=== PATIENT | male | born 1960 | race Caucasian/White ===

== ENCOUNTER 2023-02-02 19:41 | Inpatient (IN) | payer BC ==
[~2023-02-02] VITALS: Ht 167.6 cm; Wt 81.6 kg
[2023-02-02 19:55] VITALS: BP 116/91
--- NOTE | 2023-02-02 20:02 | NUR ---
pt went to the lobby
--- NOTE | 2023-02-02 20:35 | NUR ---
PT TO BED 1 AMBULATORY
[2023-02-02 21:52] LABS: BASOPHILS % (AUTO) 0.7 % (0.0-2.0); EOSINOPHILS # (AUTO) 0.1 K/uL (0-0.4); EOSINOPHILS % (AUTO) 2.4 % (0.0-4.0); HEMATOCRIT 28.2 % (36-52); HEMOGLOBIN 9.4 g/dL (12.0-18.0); LYMPHOCYTES # (AUTO) 0.6 K/uL (2.0-11.5); LYMPHOCYTES % (AUTO) 12.9 % (20.5-51.1); MEAN CORPUSCULAR HEMOGLOBIN 28 pg (27-31); MEAN CORPUSCULAR HGB CONC 33 g/dL (33-37); MEAN CORPUSCULAR VOLUME 85.3 fL (80-94); MONOCYTES # (AUTO) 0.5 K/uL (0.8-1.0); MONOCYTES % (AUTO) 10.3 % (1.7-9.3); NEUTROPHILS # (AUTO) 3.6 K/uL (1.8-7.7); NEUTROPHILS % (AUTO) 73.7 % (42.2-75.2); PLATELET COUNT (AUTO) 88 K/uL (140-450); RED BLOOD CELL COUNT(AUTO) 3.31 MIL/uL (4.20-6.10); RED CELL DISTRIBUTION WIDTH 17.6 % (11.6-13.7); WHITE BLOOD COUNT (AUTO) 4.8 K/uL (4.8-10.8)
[2023-02-02 22:05] LABS: ALBUMIN 2.8 g/dL (3.4-5.0); ANION GAP 11.6 (8-16); CARBON DIOXIDE 27.1 mmol/L (21-32); CREATININE 1.2 mg/dL (0.6-1.3); POTASSIUM 3.7 mmol/L (3.5-5.1); TOTAL BILIRUBIN 1.4 mg/dL (0.0-1.0)
[2023-02-02 22:10] LABS: LIPASE 160 U/L (73-393)
--- NOTE | 2023-02-02 23:00 | NUR ---
Patient resting in bed, A/Ox4, chest rise and fall symmetrical, no s/s of distress, on monitor.
[2023-02-03 00:10] LABS: APPEARANCE,URINE CLEAR (CLEAR); BILIRUBIN,URINE NEGATIVE (NEGATIVE); BLOOD, URINE NEGATIVE (NEGATIVE); COLOR,URINE YELLOW (YELLOW); LEUKOCYTE ESTERASE ,URINE NEGATIVE (NEGATIVE); NITRITE, URINE NEGATIVE (NEGATIVE); UGLUCOSE NEGATIVE (NEGATIVE)
--- NOTE | 2023-02-03 01:21 | NUR ---
Patient resting in bed, A/Ox4, chest rise and fall symmetrical, no s/s of distress, on monitor.
--- NOTE | 2023-02-03 03:49 | NUR ---
ER physician at bedside speaking with patient.
--- NOTE | 2023-02-03 03:49 | NUR ---
Patient resting in bed, A/Ox4, chest rise and fall symmetrical, no c/o pain or s/s of distress, on monitor.
[2023-02-03] MEDS ORDERED: LISI-487 PO (05:09)
[2023-02-03] MEDS ORDERED: FURO-572 PO (05:09)
[2023-02-03] MEDS ORDERED: HYDROcodone/APAP 5/325 MG 1 TAB TAB PO ONE (05:40)
--- NOTE | 2023-02-03 05:50 | NUR ---
Patient resting in bed, A/Ox4, chest rise and fall symmetrical, no c/o pain or s/s of distress, on monitor.
[2023-02-03] MEDS ORDERED: POTASSIUM CHLORIDE 10 MEQ TABER PO PRN (06:25)
[2023-02-03] MEDS ORDERED: ONDANSETRON 4 MG/2 ML VIAL IVP PRN ×2 (06:25→07:55)
[2023-02-03] MEDS ORDERED: NACL 0.9% 1,000 ML IV SCH (06:25)
[2023-02-03] MEDS ORDERED: MAG SULF 2000 MG/WATER PREMIX 50 ML IV PRN (06:25)
[2023-02-03] MEDS ORDERED: HYDROcodone/APAP 7.5/325 MG 1 TAB PO PRN (06:25)
[2023-02-03] MEDS ORDERED: ACETAMINOPHEN 325 MG TAB PO PRN ×2 (06:25→07:55)
--- NOTE | 2023-02-03 07:12 | NUR ---
Change of shift report given to AM Shift Nurse Familia ANTHONY. AM Shift Nurse Familia RN verbalized understanding of report, no further questions.
--- NOTE | 2023-02-03 07:30 | NUR ---
ASSUMED PATIENT CARE, CONCUR WITH PREVIOUS NURSING ASSESSMENTS.
[2023-02-03] MEDS ORDERED: ZOLPIDEM 5 MG TAB PO PRN (07:55)
[2023-02-03] MEDS ORDERED: HYDROcodone/APAP 5/325 MG 1 TAB TAB PO PRN (07:55)
[2023-02-03] MEDS ORDERED: BOWEL EVACUANT DRINK 4,000 ML PDS PO SCH (08:00)
--- NOTE | 2023-02-03 08:57 | NUR ---
PATIENT HAS BEEN SCREENED AND CATEGORIZED MODERATE NUTRITION RISK. PATIENT WILL BE SEEN WITHIN 3-5 DAYS OF ADMISSION. 02/06/23-02/08/[address]
[2023-02-03] MEDS ORDERED: ENOXAPARIN 40 MG/0.4 ML SYR SUBQ SCH (09:00)
[2023-02-03] MEDS ORDERED: PANTOPRAZOLE 40 MG INJ VIAL IVP SCH (09:00)
[2023-02-03] MEDS ORDERED: lisinopriL 20 MG TAB PO SCH (09:00)
[2023-02-03] MEDS ORDERED: DOCUSATE SODIUM 100 MG GELCAP PO SCH (09:00)
--- NOTE | 2023-02-03 09:09 | NUR ---
PT WENT TO CT
[2023-02-03] MEDS: FUROSEMIDE 40 MG/4 ML VIAL IVP SCH ×2 (09:27→17:56)
[2023-02-03] MEDS: DOCUSATE SODIUM 100 MG GELCAP PO SCH (09:27)
--- NOTE | 2023-02-03 19:51 | NUR ---
Lilian stanley in ED - 02/03/23 at 1952 by AMANPB assumed care of pt, respirations even and unlabored.
--- NOTE | 2023-02-03 19:52 | NUR ---
assumed care of pt, respirations even and unlabored. pt awake and alert, bedside. awaiting admission
--- NOTE | 2023-02-03 20:23 | NUR ---
Patient will be admitted to care of Ashley. Admited to Med Surg. Will go to [id number]. Belongings list completed. Report to Sandi ANTHONY.
--- NOTE | 2023-02-03 20:27 | NUR ---
ADMITTED PT FROM ER VIA [facility] WITH CHIEF COMPLAINTS OF BILATERAL SWELLING OF LEG. PT DIAGNOSIS OF CIRRHOSIS WITH LIVER MASS, HISTORY OF HEP C, COLITIS AND HTN. PT ALLERGY OF PENICILLIN AND IS A FULL CODE. PT ABLE TO AMBULATE INDEPENDENTLY WITH STEADY GAIT. PT IS AWAKE , ALERT AND ABLE TO VERBALIZED NEEDS. IV SITE IS ON LEFT AC 18G. PT IS CURRENTLY NPO.
--- NOTE | 2023-02-03 22:00 | NUR ---
PT AMBULATES TO RESTROOM INDEPENDENTLY. NO VERBALIZATION OF PAIN OR DISCOMFORT.
[2023-02-04 04:00] VITALS: BP 123/77
--- NOTE | 2023-02-04 05:00 | NUR ---
PT IS ON STABLE CONDITION, VERBALIZED OF HAVING MILD PAIN ON ABDOMEN BUT TOLERABLE.
[2023-02-04 05:28] LABS: EOSINOPHILS # (AUTO) 0.1 K/uL (0-0.4); EOSINOPHILS % (AUTO) 3.2 % (0.0-4.0); HEMATOCRIT 27.6 % (36-52); HEMOGLOBIN 9.2 g/dL (12.0-18.0); LYMPHOCYTES # (AUTO) 0.7 K/uL (2.0-11.5); LYMPHOCYTES % (AUTO) 18.8 % (20.5-51.1); MEAN CORPUSCULAR HEMOGLOBIN 29 pg (27-31); MEAN CORPUSCULAR HGB CONC 33 g/dL (33-37); MEAN CORPUSCULAR VOLUME 85.7 fL (80-94); MONOCYTES # (AUTO) 0.5 K/uL (0.8-1.0); MONOCYTES % (AUTO) 13.5 % (1.7-9.3); NEUTROPHILS # (AUTO) 2.3 K/uL (1.8-7.7); NEUTROPHILS % (AUTO) 63.5 % (42.2-75.2); PLATELET COUNT (AUTO) 75 K/uL (140-450); RED BLOOD CELL COUNT(AUTO) 3.23 MIL/uL (4.20-6.10); RED CELL DISTRIBUTION WIDTH 17.7 % (11.6-13.7); WHITE BLOOD COUNT (AUTO) 3.6 K/uL (4.8-10.8)
[2023-02-04 06:25] LABS: ALBUMIN 2.5 g/dL (3.4-5.0); ANION GAP 13.3 (8-16); CARBON DIOXIDE 26.2 mmol/L (21-32); POTASSIUM 3.5 mmol/L (3.5-5.1); TOTAL BILIRUBIN 1.7 mg/dL (0.0-1.0)
[2023-02-04 08:00] VITALS: BP 132/83
[2023-02-04] MEDS: FUROSEMIDE 40 MG/4 ML VIAL IVP SCH ×2 (08:32→16:40)
[2023-02-04] MEDS: DOCUSATE SODIUM 100 MG GELCAP PO SCH (08:32)
--- NOTE | 2023-02-04 08:46 | NUR ---
DC PLANN[age] YRS OLD MALE PATIENT WAS ADMITTED FROM HOME WITH A DX OF METASTATIC CANCER. PATIENT HAS A HX OF HEP C AND HTN. CT ABD AND US ABD SHOWED CIRRHOTIC LIVER CONTAINING MULTIPLE MASS LESIONS. CT CHEST SHOWED MULTIPLE BILATERAL PULMONARY NODULES WITH PRIMARY CONSIDERATION TO METASTATIC DISEASE. ADMINISTERED IV LASIX AND CONTINUED HOME MEDS. CONSULTED WITH GI. DC PLAN TO GO HOME AND F/U WITH ONCOLOGY OUT PATIENT. CM TO FOLLOW Addendum: 02/05/23 at 1135 by DESMOND ESPINAL CM RECEIVED ORDER TO SUBMIT A REQUEST FOR AUTH TO SE DR REBECCA ADAMS NEW DX CANCER. FAXED ORDER TO PATIENTS INSURANCE PROSPECT
--- NOTE | 2023-02-04 09:04 | NUR ---
FNS CONSULT HAS BEEN RECEIVED ON 02/04/23 FOR NOT EATING/POOR APPETITE FOR OVER 1 WEEK. PATIENT HAS BEEN RE-SCREENED HIGH RISK AND WILL BE SEEN WITHIN 1-2 DAYS OF RECEIVING THE FNS CONSULT. MICHAEL JENN[address] RD
[2023-02-04] MEDS ORDERED: MIDAZOLAM 2 MG/2 ML VIAL ONE ×2 (13:48)
[2023-02-04] MEDS ORDERED: fentaNYL citrate 0.05 MG/ML VIAL ONE (13:48)
[2023-02-04] MEDS ORDERED: diphenhydrAMINE 50 MG/ML VIAL ONE (13:48)
--- NOTE | 2023-02-04 14:19 | NUR ---
02/04/23 RD INITIAL ASSESSMENT COMPLETED PLEASE REFER TO NUTRITION ASSESSMENT UNDER CARE ACTIVITY FOR ESTIMATED NUTRITIONAL NEEDS. 1. CONTINUE CLEAR LIQUID DIET TOLERATED AND WHEN MEDICALLY APPROPRIATE ADVANCE TO FULL LIQUID DIET AND THEN TO CARDIAC DIET. 2. RD RECOMMENDS ENSURE CLEAR BID TO HELP WITH CALORIE AND NUTRIENT INTAKE. THIS WILL PROVIDE 480 CALORIES AND 16 GRAMS OF PROTEIN. 3. RD TO FOLLOW-UP 3-5 DAYS, MODERATE RISK MICHAEL JENNINGS RD
[2023-02-04] MEDS ORDERED: POTASSIUM CHLORIDE 20% 40 MEQ/15 ML UDC GT SCH (15:16)
[2023-02-04] MEDS ORDERED: SPIRONOLACTONE 50 MG TAB PO SCH (15:17)
--- NOTE | 2023-02-04 15:37 | NUR ---
RECEIVE PATIENT BACK FROM OR AFTER COMPLETE EGD & COLONOSCOPY. 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 PATIENT CURRENT ADVANCE DIET TO CLEAR LIQUID. WILL CONTINUE TO MONITOR Addendum: 02/04/23 at 2000 by Judy Lock RN ENDORSE PATIENT IN STABLE CONDITION AFTER PROCEDURE DONE AND PATIENT SHOWER THIS MORNING.
[2023-02-04 16:00] VITALS: BP 124/83
[2023-02-04] MEDS ORDERED: fentaNYL citrate 0.05 MG/ML VIAL IVP ONE (16:00)
[2023-02-04] MEDS ORDERED: MIDAZOLAM 2 MG/2 ML VIAL IVP ONE (16:00)
--- NOTE | 2023-02-04 19:25 | NUR ---
RECEIVED PT ENDORSEMENT FROM DAY SHIFT NURSE FOR CONTINUITY OF CARE. PT IS ON STABLE CONDITION, AWAKE AND ALERT. PT AMBULATES TO REST ROOM INDEPENDENTLY. FAMILY ARE ON BEDSIDE.
[2023-02-04 20:00] VITALS: BP 125/72
--- NOTE | 2023-02-04 22:00 | NUR ---
PT SLEEPS WELL, NO FACIAL GRIMACING. NO SOB OR DISTRESS.
--- NOTE | 2023-02-05 02:00 | NUR ---
PT ASLEEP WITH NO FACIAL GRIMACING. NO SOB OR DISTRESS.
[2023-02-05 04:00] VITALS: BP 134/78
--- NOTE | 2023-02-05 04:30 | NUR ---
PT WAS AWAKE WHEN VITAL SIGNS CHECK, PT DENIES OF PAIN AT THIS TIME.
[2023-02-05 05:27] LABS: BASOPHILS % (AUTO) 0.5 % (0.0-2.0); EOSINOPHILS # (AUTO) 0.1 K/uL (0-0.4); EOSINOPHILS % (AUTO) 2.8 % (0.0-4.0); HEMATOCRIT 28.6 % (36-52); HEMOGLOBIN 9.6 g/dL (12.0-18.0); LYMPHOCYTES # (AUTO) 0.6 K/uL (2.0-11.5); LYMPHOCYTES % (AUTO) 16.2 % (20.5-51.1); MEAN CORPUSCULAR HEMOGLOBIN 29 pg (27-31); MEAN CORPUSCULAR HGB CONC 34 g/dL (33-37); MEAN CORPUSCULAR VOLUME 85.6 fL (80-94); MONOCYTES # (AUTO) 0.4 K/uL (0.8-1.0); MONOCYTES % (AUTO) 11.9 % (1.7-9.3); NEUTROPHILS # (AUTO) 2.4 K/uL (1.8-7.7); NEUTROPHILS % (AUTO) 68.6 % (42.2-75.2); PLATELET COUNT (AUTO) 82 K/uL (140-450); RED BLOOD CELL COUNT(AUTO) 3.34 MIL/uL (4.20-6.10); RED CELL DISTRIBUTION WIDTH 17.6 % (11.6-13.7); WHITE BLOOD COUNT (AUTO) 3.5 K/uL (4.8-10.8)
[2023-02-05 06:17] LABS: ALBUMIN 2.6 g/dL (3.4-5.0); ANION GAP 13.9 (8-16); CARBON DIOXIDE 26.5 mmol/L (21-32); MAGNESIUM 1.9 mg/dL (1.8-2.4); POTASSIUM 3.4 mmol/L (3.5-5.1); TOTAL BILIRUBIN 1.5 mg/dL (0.0-1.0)
[2023-02-05] MEDS ORDERED: SPIR50TA PO (08:49)
[2023-02-05] MEDS ORDERED: LACT10SO11 PO (08:49)
[2023-02-05] MEDS ORDERED: ACET-5629 PO (08:49)
[2023-02-05] MEDS ORDERED: LACTULOSE 20 GM/30 ML UDC PO SCH (09:00)
[2023-02-05] MEDS ORDERED: SPIRONOLACTONE 50 MG TAB PO SCH (09:00)
[2023-02-05] MEDS: FUROSEMIDE 40 MG/4 ML VIAL IVP SCH (09:35)
--- NOTE | 2023-02-05 13:30 | NUR ---
patient discharged home accompanied by . stable upon discharged.
== END 2023-02-05 13:25 | disposition home or self-care (01) | DRG 436 ==
LOC: MED 19:41 → MTU 02-03 06:32 → OBSVTOIN 02-03 06:32 → INTOOBSV 02-03 06:32 → MTU 02-03 07:58
PROVIDERS: ADMIT Internal Medicine; ATTEND Internal Medicine
PROC: 0DJ08ZZ Inspection of Upper Intestinal Tract, Via Natural or Artificial Opening Endoscopic (ICD-10-PCS; principal; 2023-02-04 13:00)
PROC: 0DBN8ZZ Excision of Sigmoid Colon, Via Natural or Artificial Opening Endoscopic (ICD-10-PCS; 2023-02-04 13:00)
DX: C78.7 Secondary malignant neoplasm of liver and intrahepatic bile duct (principal); C78.01 Secondary malignant neoplasm of right lung; I85.10 Secondary esophageal varices without bleeding; K76.6 Portal hypertension; B19.20 Unspecified viral hepatitis C without hepatic coma; D64.9 Anemia, unspecified; K74.60 Unspecified cirrhosis of liver; K80.20 Calculus of gallbladder without cholecystitis without obstruction; I10 Essential (primary) hypertension; Z20.822 Contact with and (suspected) exposure to COVID-19
CPT/HCPCS: 36415; 71250; 76705; 80053; 81003; 82105; 82378; 83690; 83735; 83880; 84484; 85025; 86301; 87081; 99285; J1200; J1940; J2250; J3010; Q0092

== ENCOUNTER 2023-02-24 10:58 | Inpatient (IN) | payer BC ==
[~2023-02-24] VITALS: Ht 167.6 cm; Wt 82.6 kg
[2023-02-24] VITALS (14 sets, daily range): BP systolic 67–160; BP diastolic 46–106; PULSE 31–106; RESP 22–31; TEMP 90–96.8; O2SAT 98–100
[~2023-02-24 10:58] MED LIST: ACET-5629 PO; FURO-572 PO; LACT10SO11 PO; LISI-487 PO; SPIR50TA PO
--- NOTE | 2023-02-24 11:14 | NUR ---
BIBA FOR AMS, HYPOGLYCEMIA. PATIENT WITH HX OF LIVER CA WITH IFEOMA TO LUNGS AND BONES.
--- NOTE | 2023-02-24 11:15 | NUR ---
abg ordered for pt from er dr. ashraf is in respiratory distress came in on 100% nonrebreather mask.
[2023-02-24] MEDS ORDERED: INTUBATION KIT MC ONE (11:24)
--- NOTE | 2023-02-24 11:26 | NUR ---
RSI MEDS GIVEN FOLLOWS 1126 ETOMIDATE 20 MG IVP 1127 ROCURONIUM 100 MG IVP INTUBATED WITH 8.0 ETT AT 22 LIP.
[2023-02-24 11:27] LABS: HEMATOCRIT 25.2 % (36-52); HEMOGLOBIN 7.6 g/dL (12.0-18.0); MEAN CORPUSCULAR HEMOGLOBIN 29 pg (27-31); MEAN CORPUSCULAR HGB CONC 30 g/dL (33-37); MEAN CORPUSCULAR VOLUME 96.9 fL (80-94); PLATELET COUNT (AUTO) 145 K/uL (140-450); RED CELL DISTRIBUTION WIDTH 22.7 % (11.6-13.7); WHITE BLOOD COUNT (AUTO) 17.5 K/uL (4.8-10.8)
--- NOTE | 2023-02-24 11:40 | NUR ---
@1127 pt became unresponsive and pt was intubated with 8.0 secured at 22@ lips, pt was preoxygenated with 100% o2 via ambu bag. positive coloremetry, bilateral breath sounds heard, and chest xray taken. pt was placed on vent settings AC/VC 450 RR16 +5 50%. pt tolerating settings well. will contiue to monitor.
[2023-02-24 11:45] LABS: CREATININE 3.8 mg/dL (0.6-1.3); TOTAL BILIRUBIN 5.9 mg/dL (0.0-1.0)
[2023-02-24 11:47] LABS: LYMPHOCYTES % (MANUAL) 6 % (20-46); MONOCYTES % (MANUAL) 7 % (5-12)
[2023-02-24 11:51] LABS: CARBON DIOXIDE 8.2 mmol/L (21-32); POTASSIUM 7.2 mmol/L (3.5-5.1)
[2023-02-24] MEDS ORDERED: ETOMIDATE 20 MG/10 ML VIAL IVP ONE (12:00)
[2023-02-24] MEDS ORDERED: ROCURONIUM 50 MG/5 ML VIAL IV ONE (12:00)
[2023-02-24] MEDS ORDERED: DEXTROSE 50% 50 ML SYR IVP ONE ×2 (12:10→23:25)
[2023-02-24] MEDS ORDERED: ALBUTEROL 0.083% 2.5 MG/3 ML NEBU INH ONE (12:10)
[2023-02-24] MEDS ORDERED: INSULIN REGULAR, HUMAN 100 UNIT/ML VIAL SUBQ ONE (12:10)
[2023-02-24] MEDS ORDERED: CALCIUM GLUCONATE 10% 1,000 MG in NACL 0.9% 50 ML IV ONE ×4 (12:10)
[2023-02-24] MEDS ORDERED: VANCOMYCIN 1GM/DEXT 5% PREMIX 200 ML IV ONE (12:15)
[2023-02-24] MEDS ORDERED: PIPERACILLIN/TAZOBACTAM 3.375 GM in DEXTROSE 5% 50 ML IV ONE (12:15)
[2023-02-24] MEDS ORDERED: VANCOMYCIN PER PHARMACY MC PRN ×2 (12:15→13:15)
[2023-02-24] MEDS ORDERED: CALCIUM GLUC 1 GM/50 mL NS BAG 100 ML IV ONE (12:23)
[2023-02-24] MEDS ORDERED: PIPERACILLIN/TAZOBACTAM 3.375 GM VIAL IV ONE (12:23)
[2023-02-24 12:50] LABS: PROTHROMBIN TIME 30.7 secs (10.8-13.4)
[2023-02-24] MEDS ORDERED: VASOPRESSIN 20 UNITS/ML VIAL ONE ×2 (12:59→23:43)
--- NOTE | 2023-02-24 13:10 | NUR ---
er requested to withdrawl ett 1cm. pt ett is now 21 @lip. will continue to monitor.
[2023-02-24] MEDS ORDERED: DEXT 5% /NACL 0.9% 1,000 ML IV SCH (13:15)
[2023-02-24] MEDS ORDERED: MORPHINE SULFATE 4 MG/ML SYR IVP PRN (13:15)
[2023-02-24] MEDS ORDERED: ONDANSETRON 4 MG/2 ML VIAL IVP PRN (13:15)
[2023-02-24] MEDS ORDERED: ACETAMINOPHEN 325 MG TAB PO PRN (13:15)
[2023-02-24] MEDS ORDERED: PROPOFOL 1000 MG/100 ML PREMIX 100 ML IV PRN (13:20)
[2023-02-24] MEDS ORDERED: NOREPINEPHRINE 4 MG in DEXTROSE 5% 250 ML IV PRN (13:20)
[2023-02-24] MEDS ORDERED: VANCOMYCIN 1,000 MG VIAL ONE (13:28)
[2023-02-24] MEDS ORDERED: PANTOPRAZOLE 40 MG INJ VIAL IVP SCH (13:40)
[2023-02-24] MEDS: SODIUM BICARBONATE 8.4% 150 MEQ in DEXTROSE 5% 1,000 ML IV SCH ×2 (13:45→23:05)
[2023-02-24] MEDS ORDERED: NOREPINEPHRINE 4 MG/4 ML VIAL IV ONE ×2 (13:46→16:13)
[2023-02-24] MEDS: VASOPRESSIN 20 UNITS in NACL 0.9% 250 ML IV SCH ×2 (14:09→23:47)
[2023-02-24] MEDS ORDERED: PHENYLEPHRINE 10 MG in NACL 0.9% 250 ML IV PRN (14:30)
[2023-02-24] MEDS ORDERED: NACL 0.9% 2,000 ML IV SCH (14:30)
[2023-02-24] MEDS ORDERED: OCTREOTIDE ACETATE 1.25 MG in NACL 0.9% 250 ML IV SCH (14:30)
[2023-02-24] MEDS ORDERED: SODIUM BICARBONATE 8.4% PFS 50 MEQ/50 ML SYR IVP ONE ×5 (14:32→22:20)
[2023-02-24] MEDS ORDERED: LIDOCAINE MPF 1% 5 ML ONE (14:34)
--- NOTE | 2023-02-24 14:59 | NUR ---
INTESIVIST AT BS
--- NOTE | 2023-02-24 15:00 | NUR ---
BLOOODS PRESSURE IMPROVING
[2023-02-24] MEDS ORDERED: ALBUMIN HUMAN 25% 100 ML IV SCH (15:12)
[2023-02-24] MEDS: PANTOPRAZOLE 80 MG in NACL 0.9% 100 ML IVP SCH (15:58)
--- NOTE | 2023-02-24 16:25 | NUR ---
Received patient from ER nurse Karlee. Patient immediately put on ICU monitor due to current state. Patient has 18G to left AC, 20G right AC, 18G to hand. Left groin triple lumen central line. Patient is on Protonix Drip, Sandostatin, Vasopressin, Sozyn, Levophed, D5W, Albumin, 1 unit of PRBC. Patient on ETT to vent A/C VC FIO2 40% VT 450, RR 24 Peep 5 per ER nurse ETT tube originally placement was 22 inches now it's 21 inches. Abdomen distended. Lopez catheter to gravity with yellow urine.
--- NOTE | 2023-02-24 16:38 | NUR ---
Patient will be admitted to care of HARRIET. Admited to ICU. Will go to room 9. Belongings list completed. Report to
--- NOTE | 2023-02-24 16:45 | NUR ---
Contacted ER Nurse regarding typing cross paper. Per ER nurse due to emergency no typing cross match paper was given when he picked up RBC. Will continue to follow plan of care.
--- NOTE | 2023-02-24 16:45 | NUR ---
Received RBC from ER Nurse. Started patient on RBC unit [id number]. VSS stable. No SOB or acute distress noted.
--- NOTE | 2023-02-24 17:00 | NUR ---
Patient had no adverse reactions to RBC transfusion. VSS. No SOB or acute distress. Will continue to follow plan of care.
[2023-02-24 17:36] LABS: ANION GAP 32.7 (8-16); CARBON DIOXIDE 11.9 mmol/L (21-32); CREATININE 3.6 mg/dL (0.6-1.3)
[2023-02-24 17:39] LABS: POTASSIUM 6.6 mmol/L (3.5-5.1)
--- NOTE | 2023-02-24 18:00 | NUR ---
Reached out to Dr. Becker regarding patients trending down Troponin level of 620. No new orders received.
[2023-02-24] MEDS: NOREPINEPHRINE 16 MG in DEXTROSE 5% 250 ML IV PRN (19:01)
--- NOTE | 2023-02-24 19:25 | NUR ---
RECEIVED PT ON VENTILATOR PLUGGED INTO RED OUTLET WITH SETTINGS AC 24, Vt 450, PEEP +5, FiO2 40%. AMBU BAG AT BEDSIDE AND SUCTION IS SETUP. BREATH SOUNDS ARE CLEAR, SXN SMALL AMOUNT OF YELLOW/BLOOD TINGED SECRETION. OBTAINED SPUTUM SAMPLE FOR ANALYSISI PER DOCTOR'S ORDER. PATIENT IS NOT AWAKE AND TOLERATING VENT WELL, WILL CONTINUE TO MONITOR PT.
[2023-02-24] MEDS ORDERED: PHENYLEPHRINE 10 MG/ML VIAL ONE (19:35)
--- NOTE | 2023-02-24 19:50 | NUR ---
RECEIVED REPORT FROM [facility] NURSE, RAJ MURPHY FOR CONTINUITY OF CARE. ALL CARES ASSUMED. RECEIVED PT LYING IN BED, ON SEMI-BE'S POSITION WITH SIDE RAILS RAISED UP. PT IS LETHARGIC BUT ABLE TO RESPOND BY MOVING HEAD AND EXTREMETIES UPON ASSESSMENT, NO EYE OPENING. ON SINUS RHYTHM ON JOURNEYMAN MECHANIC. WITH NGT ATTACHED TO LOW WALL INTERMITTENT SUCTION WITH REDDISH TO BROWNISH OUTPUT OBSERVED. WITH ETT ATTACHED TO VENT ON A/C VC MODE FIO2-40% TV-450ML RATE-24CPM PEEP-5- SPO2 OF 100% WITH EQUAL CHEST RISE OBSERVED. WITH IV ACCESS OVER RIGHT AND LEFT ARM - PATENT AND INTACT- RIGHT IV ACCESS TO SALINE LOCK; LEFT ANTECUBITAL IV ACCESS FLOWING TO LEVOPHED AT 30 MCG/MIN AND SOCIUM BICARBONATE AT 150ML/HR. WITH LEFT FEMORAL CENTRAL LINE-PATENT AND INTACT- FLOWING TO VASOPRESSIN AT 0.03 IU/MIN, PANTOPRAZOLE AT 8MG/HR. WITH FBC ATTACHED TO UROBAG DRAINING TO GRAVITY- YELLOW COLORED URINE NOTED. ON SYDNI ADKINS FOR HYPOTHERMIA. SAFETY PRECAUTION IN PLACE. WILL MKONITOR PT CLOSELY. Addendum: 02/24/23 at 2325 by JULIO WHITNEY RN LEVOPHED DRIP FLOWING TO LEFT FEMORAL ACCESS. PANTOPRAZOLE DRIP FLOWING TO LEFT AC IV ACCESS.
[2023-02-24] MEDS: OCTREOTIDE ACETATE 1.25 MG in NACL 0.9% 250 ML IV SCH (19:54)
[2023-02-24 20:15] LABS: BASOPHILS # (AUTO) 0.1 K/uL (0.00-0.22); BASOPHILS % (AUTO) 0.4 % (0.0-2.0); EOSINOPHILS # (AUTO) 0.1 K/uL (0-0.4); EOSINOPHILS % (AUTO) 0.3 % (0.0-4.0); HEMATOCRIT 24.3 % (36-52); HEMOGLOBIN 7.5 g/dL (12.0-18.0); LYMPHOCYTES # (AUTO) 1.1 K/uL (2.0-11.5); LYMPHOCYTES % (AUTO) 5.3 % (20.5-51.1); MEAN CORPUSCULAR HEMOGLOBIN 29 pg (27-31); MEAN CORPUSCULAR HGB CONC 31 g/dL (33-37); MEAN CORPUSCULAR VOLUME 94.4 fL (80-94); MONOCYTES # (AUTO) 1.4 K/uL (0.8-1.0); MONOCYTES % (AUTO) 6.8 % (1.7-9.3); NEUTROPHILS # (AUTO) 18.5 K/uL (1.8-7.7); NEUTROPHILS % (AUTO) 87.2 % (42.2-75.2); PLATELET COUNT (AUTO) 76 K/uL (140-450); RED BLOOD CELL COUNT(AUTO) 2.57 MIL/uL (4.20-6.10); RED CELL DISTRIBUTION WIDTH 20.8 % (11.6-13.7); WHITE BLOOD COUNT (AUTO) 21.2 K/uL (4.8-10.8)
[2023-02-24] MEDS: metroNIDAZOLE 500 MG/NS PREMIX 100 ML IV SCH (20:17)
--- NOTE | 2023-02-24 20:57 | NUR ---
FAMILY MEMBERS CAME TO VISIT. STAYED AT BEDSIDE.
--- NOTE | 2023-02-24 21:00 | NUR ---
DR. DAI CALLED, ASKED PT. CURRENT CONDITION AND ASKED IF PT. ON THE DRIP. REPORTED THAT PT. ON LEVOPHED DRIP, PROTONIX DRIP, VASOPRESSIN DRIP, SODIUM BICARB DRIP, AND JUST STARTED NEOSYNEPHRINE DRIP, SANDOSTATIN DRIP. REPORTED TOO THAT 1 UNIT OF PRBC GIVEN, JUST FINISHED. HE ASKED IF CT CHEST OF HEAD WITHOUT CONTRAST HAS BEEN DONE. THE ORDER PLACED AT 1445 IN ER. WHILE ON THE PHONE WITH DR. DAI, I CALLED THE RADIOLOGY AND ASKED WHY CT SCAN OF THE HEAD NOT DONE AND ACCORDING TO RADIOLOGY BEC. DURING THAT TIME, ER STATED PT. UNSTABLE TO GO TO CT DUE TO LOW BP. RELATED TO DR. DAI WHAT THE RADIOLOGY DEPT. STATED AND HE SAID, PT. WILL ALWAYS BE UNSTABLE, THAT'S WHY CT NEEDS TO BE DONE. HE ORDERED TO DO STAT CT SCAN OF THE HEAD WITHOUT CONTRAST. ALSO, ORDERED STAT 3 FFP, 2 UNITS RBC TRANSFUSION, ABG, 2 AMPS SODIUM BICARB. I ALSO REPORTED PT. K LEVEL 6.6 AND HE ORDERED TO NOTIFY TAPE CUTTER WITH THE K LEVEL. WILL ORDER AND WILL CARRY OUT.
--- NOTE | 2023-02-24 21:32 | NUR ---
TRANSPORTED PT TO CT WITHOUT INCIDENT.
--- NOTE | 2023-02-24 21:40 | NUR ---
PT TO CT FOR CT OF THE HEAD W/O CONTRAST, SWITCHMAN SUPERVISOR WITH PT.
--- NOTE | 2023-02-24 22:02 | NUR ---
PT ARRIVED BACK FROM CT SCAN. PROCEDURE DONE.
--- NOTE | 2023-02-24 22:15 | NUR ---
OBTAINED ABG PER ORDER. RESULTS GIVEN TO RN WHO COMMUNICATED RESULTS TO DOCTOR. ABG RESULTS WEREpH 7.102, pCO2 31.0, pO2 111.6, HCO3- 9.5, BE -18.5.
--- NOTE | 2023-02-24 22:15 | NUR ---
ABG TAKEN BY RT.
--- NOTE | 2023-02-24 22:26 | NUR ---
I CALLED DARELL BALDWIN AND REPORTED K LEVEL 6.6. HE ORDERED TO GIVE CALCIUM GLUCONATE 1 GM, 1 AMP D50 AND 8 UNITS REGULAR INSULIN IVP. WILL ORDER AND WILL CARRY OUT.
--- NOTE | 2023-02-24 23:15 | NUR ---
PT WITH AVAILABLE BLOOD. BLOOD TAKEN FROM BLOOD BANK AND VERIFIED WITH LAB PERSONNEL.
--- NOTE | 2023-02-24 23:20 | NUR ---
PRE-VS TAKEN FOLLOWS: TEMP- 96.2 F HR- 98 BPM BP- 128/76 MMHG RR- 23 CPM SPO2- 98%
[2023-02-24] MEDS ORDERED: CALCIUM GLUC 1 GM/50 mL NS BAG 50 ML IV ONE (23:25)
--- NOTE | 2023-02-24 23:25 | NUR ---
BLOOD COUNTERCHECKED WITH NURSE RAJ LIANG. BLOOD OF PRBC STARTED - "O" POSITIVE WITH UNIT # [id number] COMPATIBLE WITH PT- BLOOD. WILL MONITOR PT AFTER 15 MINUTES.
[2023-02-24] MEDS ORDERED: INSULIN REGULAR, HUMAN 100 UNIT/ML VIAL IVP ONE (23:30)
[2023-02-25] VITALS (46 sets, daily range): BP systolic 74–140; BP diastolic 43–72; PULSE 89–112; RESP 20–35; TEMP 95.5–97.9; O2SAT 16–100
--- NOTE | 2023-02-25 00:25 | NUR ---
BLOOD SUGAR CHECKED PRIOR INSULIN ADMINISTRATION - 222 MG/DL.
--- NOTE | 2023-02-25 00:47 | NUR ---
PAGED DR. DAI TO REPORT RESULTS OF ABG, CT OF HEAD W/O CONTRAST AND TO ASKED IF HE STILL WANTS TO DO THE CT OF CHEST/ABDOMEN/PELVIS WITH CONTRAST SINCE CREATININE LEVEL IS 3.6. TO REPORT THE HEPARIN MED. WILL WAIT FOR HIS CALL.
--- NOTE | 2023-02-25 01:00 | NUR ---
VENT WITH PERSISTENT ALARM - HIGH PEAK PRESSURE. SUCTIONED SECRETIONS. HOB RAISED. PT IS ACTIVELY AWAKE WITH INCREASED RESP RATE OF 30-35 CPM OBSERVED. SPO2 97-100%. RT NERI INFORMED.
[2023-02-25] MEDS: PANTOPRAZOLE 80 MG in NACL 0.9% 100 ML IVP SCH ×3 (01:20→20:52)
--- NOTE | 2023-02-25 02:06 | NUR ---
BT COMPLETED. NO REACTIONS OBSERVED. WILL MONITOR CLOSELY FOR ANY POST BT REACTIONS. TEMP - 96.7 F HR - 106 BPM RR- 27 CPM BP - 102/63 SPO2 - 100%
--- NOTE | 2023-02-25 02:38 | NUR ---
BLOOD TAKEN TO BLOOD BANK. VERIFIED BLOOD WITH LAB PERSONNEL. PRBC "O" POSITIVE BLOOD UNIT # [id number] EXPIRY DATE ON 03-24-2023, [id number] - COMPATIBLE WITH PTS BLOOD TYPE.
--- NOTE | 2023-02-25 02:55 | NUR ---
PRE-BT VITAL SIGNS FOLLOWS: TEMP- 97.0 F, HR- 108 BPM RR-26CPM BP-118/72 MMHG SPO2- 100%
--- NOTE | 2023-02-25 03:00 | NUR ---
BLOOD STARTED AT 100 ML/HR RATE. WILL MONITOR AFTER 15 MINS FOR REACTIONS,
--- NOTE | 2023-02-25 03:25 | NUR ---
CALLED BACK. I READ TO HIM THE RESULT OF ABG, THE CT OF THE HEAD W/O CONTRAST. HOWEVER, REPORTED THAT THE CT ANGIO CHEST/ADBOMEN/PELVIS WITH CONTRAST NOT DONE YET. PER RADIOLOGY PT. WILL HAVE A CT WITH CONTRAST AND THEY WOULD LIKE TO KNOW WITH CREATININE OF 3.6, IF MD WANTS TO DO IT. DR. DAI STATED YES, EVEN WITH HIGH CREATININE, HE WANTS CT ANGIO CHEST/ABDOMEN/PELVIS TO BE DONE AND HE ORDERED STAT. I ALSO REPORTED PT. WITH HEPARIN SQ Q12H AND IX DOSE GIVEN. HE ORDERED TO DISCONTINUE HEPARIN. ALSO, REPORTED PT. WIDE AWAKE AND EARLIER FIGHTING WITH THE VENT, BUT CALM AT THIS TIME WITH THE AT THE BEDSIDE. HE ORDERED VERSED DRIP AND FENTANYL 50MG Q2HRS FOR PAIN. HE ALSO ORDERED TO GIVE ALL THE BLOOD TRANSFUSION ALL TOGETHER. HE DOESN'T WANT THE TRANSFUSION TO BE GIVEN ONE AT A TIME. I REPORTED THAT 2 UNITS PRBC GIVEN AND WITH ONGOING 3RD UNIT PRBC. HE STATED TO GIVE ALSO THE 3 FFP, ALL TOGETHER STAT. WILL PLACE ORDER AND WILL CARRY OUT.
[2023-02-25] MEDS ORDERED: MIDAZOLAM MDV 50 MG in NACL 0.9% 40 ML IV PRN (03:40)
[2023-02-25] MEDS ORDERED: fentaNYL citrate 0.05 MG/ML VIAL IVP PRN (03:55)
--- NOTE | 2023-02-25 04:00 | NUR ---
WITH CONSENT SIGNED BY ARNALDO FOR CT ANGIOGRAM PROCEDURE. WHEELED PT TO CT SCAN DEPT FOR PROCEDURE OF CT ANGIOGRAM OF CHEST, ABDOMEN AND PELVIS. FACILITATED.
--- NOTE | 2023-02-25 04:00 | NUR ---
FFP TAKEN AT LAB AND VERIFIED WITH RECONDITIONING ASSOCIATEKENJI. FFP STARTED AT WIDE OPEN RATE. KEPT MONITORED.
[2023-02-25 04:02] LABS: BASOPHILS # (AUTO) 0.1 K/uL (0.00-0.22); BASOPHILS % (AUTO) 0.3 % (0.0-2.0); EOSINOPHILS % (AUTO) 0.1 % (0.0-4.0); HEMATOCRIT 30.3 % (36-52); HEMOGLOBIN 9.9 g/dL (12.0-18.0); LYMPHOCYTES # (AUTO) 0.7 K/uL (2.0-11.5); LYMPHOCYTES % (AUTO) 3.6 % (20.5-51.1); MEAN CORPUSCULAR HEMOGLOBIN 30 pg (27-31); MEAN CORPUSCULAR HGB CONC 33 g/dL (33-37); MEAN CORPUSCULAR VOLUME 92.1 fL (80-94); MONOCYTES # (AUTO) 1.5 K/uL (0.8-1.0); MONOCYTES % (AUTO) 7.5 % (1.7-9.3); NEUTROPHILS # (AUTO) 17.3 K/uL (1.8-7.7); NEUTROPHILS % (AUTO) 88.5 % (42.2-75.2); PLATELET COUNT (AUTO) 59 K/uL (140-450); RED BLOOD CELL COUNT(AUTO) 3.29 MIL/uL (4.20-6.10); RED CELL DISTRIBUTION WIDTH 19.2 % (11.6-13.7); WHITE BLOOD COUNT (AUTO) 19.5 K/uL (4.8-10.8)
--- NOTE | 2023-02-25 04:02 | NUR ---
ASSISTED WITH TRANSPORT OF PT TO CT FOR ABDOMINAL SCAN WITH CONTRAST. TRANSPORTED WITHOUT INCIDENT.
[2023-02-25 04:20] LABS: ANION GAP 30.7 (8-16); CARBON DIOXIDE 15.1 mmol/L (21-32); CREATININE 3.9 mg/dL (0.6-1.3); POTASSIUM 5.8 mmol/L (3.5-5.1)
--- NOTE | 2023-02-25 04:25 | NUR ---
ARRIVED BACK AT ICU. KEPT PT MONITORED.
--- NOTE | 2023-02-25 04:33 | NUR ---
LAB CALLED AND REPORTED TROPONIN LEVEL 794 AND K 5.8.
--- NOTE | 2023-02-25 05:00 | NUR ---
BED SPONGE BATH DONE. FEMORAL CENTRAL LINE DRESSING CHANGED AND KEPT DRY AND INTACT.
[2023-02-25] MEDS ORDERED: MIDAZOLAM MDV 50 MG/10 ML VIAL IV ONE (05:01)
[2023-02-25] MEDS: metroNIDAZOLE 500 MG/NS PREMIX 100 ML IV SCH ×3 (05:07→20:51)
--- NOTE | 2023-02-25 05:30 | NUR ---
2ND BAG OF FFP STARTED. KEPT VEIN WIDE OPEN. VS MONITORED.
--- NOTE | 2023-02-25 05:32 | NUR ---
PAGED DR. STOVALL FOR TROPONIN [address] TUTTLE FOR K 5.8. WILL WAIT FOR THEIR CALL. WILL ENDORSE TO THE NEXT SHIFT.
--- NOTE | 2023-02-25 05:40 | NUR ---
DR. TUTTLE CALLED BACK.REPORTED K LEVEL 5.8 AND HE STATED " ALRIGHT, THANK YOU ".
--- NOTE | 2023-02-25 06:10 | NUR ---
PANEL SAW OPERATOR RIGO ARRIVED FOR BEDSIDE ECHOCARDIOGRAM PROCEDURE.
[2023-02-25] MEDS: NOREPINEPHRINE 16 MG in DEXTROSE 5% 250 ML IV PRN ×2 (06:14→13:53)
[2023-02-25] MEDS: SODIUM BICARBONATE 8.4% 150 MEQ in DEXTROSE 5% 1,000 ML IV SCH ×4 (07:00→23:23)
--- NOTE | 2023-02-25 07:00 | NUR ---
RECEIVED PT ON ACVC 450,F24, +5, 35%. VENT WHEELS ARE LOCKED, PLUGGED INTO RED OUTLET, ALARMS ARE SET AND AUDIBLE TO THE NURSE STATION, AMBUBAG AT BEDSIDE. WILL CONTINUE TO MONITOR.
--- NOTE | 2023-02-25 07:30 | NUR ---
RECEIVED REPOSRT FROM TAM BAND STRAIGHTENERVICE PRESIDENT AND PORTFOLIO MANAGER PT ADMIT FOR FI CA PT IS OPEN EYES ABLE TO MOVE UPPER EXTREMITY MODERATE STRENTGH, WEAK BOTH LOWER EXTREMITY. RIGHT EYE DILATED - PERRL, LEFT EYES SLUGGISH +PERRL. ETT TO VENT ON FIO2 35% TV 450 RR 24 PEEP 5 V/S 97.0 HR 111, BP 114/62 RR 33 O2SAT 100%. PT SINUS TACH ON THE MONITOR. PT HAS RIGHT NARES NGT CONNECT TO LIS DRAINING DARK RED DRAINAGE PT HAS LARGE FIRM ABDOMEN. PT IS GENERALIZED ANASARC. PT HAS KEATING CATHETER SMALL AMOUT URINE PER NIGHT RN. PT HAS 2 IV PERIPHERAL RIGHT HAND AND LEFT AC AND LEFT GROIN CENTRAL. WITH IV VERSED AT 2MG/HR, LEVOPHED DRIP AT 22 MCG, OCREOTIDE 50 MCG AND PROTONIX 8MG.AND SOIDUM BIACRB 150ML. PT HAS STATUS POST 2 PRBC AND 2 FFP PER REPORT HGB LEVEL TODAY IS 9.9. LABS CAME IN AND DRAW CBC FOR S/P BLOOD TRANSFUSION. PT ECHO IS ONGOING AT BEDSIDE. DR DAI IS AT BEDSIDE ASSESS PT SEEN LABS AND DIAGNOSTIC TEST RESULT.PT HAS DONE CT HEAD, CHEST XRAY, CT A CHEST, ABDOMEN/PELVIS. PT KEP COMFORTABLE AND SAFE. CLOSED MONITORING PROVIDED.
--- NOTE | 2023-02-25 07:30 | NUR ---
REPORT GIVEN TO DAYSHIFT NURSES, LAVERNE AND ESTELA FOR CONTINUITY OF CARE. ALL QUESTIONS ANSWERED.
[2023-02-25] MEDS ORDERED: SODIUM BICARBONATE 8.4% PFS 50 MEQ/50 ML SYR IVP SCH (07:31)
--- NOTE | 2023-02-25 08:21 | NUR ---
dR. WALLACE ADMINISTRATIVE OFFICER CAME IN AND SEE PT AND AWRE OF CRICTICAL LABS AND DIAGNOSTIC RESULT DONE HAVE A DISCUSSIOB WITH DR DAI REGARDING PT CONDTION.. NO NEW ORDER GIVEN TO NURSING AT THIS TIME
[2023-02-25] MEDS: ALBUMIN HUMAN 25% 100 ML IV SCH ×2 (08:24→12:32)
[2023-02-25 08:33] LABS: BASOPHILS % (AUTO) 0.2 % (0.0-2.0); EOSINOPHILS # (AUTO) 0.1 K/uL (0-0.4); EOSINOPHILS % (AUTO) 0.3 % (0.0-4.0); HEMATOCRIT 28.2 % (36-52); HEMOGLOBIN 9.5 g/dL (12.0-18.0); LYMPHOCYTES # (AUTO) 0.6 K/uL (2.0-11.5); LYMPHOCYTES % (AUTO) 3.6 % (20.5-51.1); MEAN CORPUSCULAR HEMOGLOBIN 30 pg (27-31); MEAN CORPUSCULAR HGB CONC 34 g/dL (33-37); MEAN CORPUSCULAR VOLUME 90.4 fL (80-94); MONOCYTES # (AUTO) 1.3 K/uL (0.8-1.0); MONOCYTES % (AUTO) 7.6 % (1.7-9.3); NEUTROPHILS # (AUTO) 15.5 K/uL (1.8-7.7); NEUTROPHILS % (AUTO) 88.3 % (42.2-75.2); PLATELET COUNT (AUTO) 55 K/uL (140-450); RED BLOOD CELL COUNT(AUTO) 3.12 MIL/uL (4.20-6.10); RED CELL DISTRIBUTION WIDTH 18.3 % (11.6-13.7); WHITE BLOOD COUNT (AUTO) 17.5 K/uL (4.8-10.8)
--- NOTE | 2023-02-25 08:45 | NUR ---
ÁLVARO SPOUSE CAME IN AND SEE PT AT BEDSIDE ANSWERED ALL QUESTIONS VERBALIZED UNDERSTANDING. CONFIRMED WITH RN DR. DAI SPOKE WITH HER AND EXPLAINED PT CONDITION NO FURTHER QUESTIONS.
--- NOTE | 2023-02-25 08:55 | NUR ---
PATIENT HAS BEEN SCREENED AND CATEGORIZED HIGH NUTRITION RISK. PATIENT WILL BE SEEN WITHIN 1-2 DAYS OF ADMISSION. 02/25/23-02/26/23 FNS CONSULT RECEIVED FOR PATIENT FOR UNINTENTIONAL WEIGHT LOSS AND VOMITING X 3 DAYS ON 02/25/23. MICHAEL J[address] RD
--- NOTE | 2023-02-25 08:58 | NUR ---
DR. LARIOS CAME IN AND SEE PT AND ASEE PT HAVE DISCUSSION WITH DR. DAI GET UPDATE ON PT CONDITION AT THIS TIME NO NEW ORDER FOR NURSING.
--- NOTE | 2023-02-25 09:09 | NUR ---
DR. DAI MADE AWARE ON PT LEFT EYE IS DILATED AND NOT REACTIVE TO LIGHT THAN RIGHT EYE IS SLIGGSIH AND REACTIVE TO LIGHT NEW ORDER GIVEN TO STAT CT HEAD.
[2023-02-25] MEDS ORDERED: DEXTROSE IV SCH (09:30)
[2023-02-25] MEDS ORDERED: ARGATROBAN IV SCH ×2 (09:30→10:10)
--- NOTE | 2023-02-25 09:45 | NUR ---
PT TRANSPORT TP CT VIA BVM AT 15L. STABLE SATURATION AND BLOOD PRESSURE. RETURNED FROM CT AND PLACED BACK ON FULL VENT SUPPORT. SATURATION 99%. STABLE BLOOD PRESSURE AND NO DISTRESS NOTED. WILL CONTINUE TO MONITOR
--- NOTE | 2023-02-25 09:54 | NUR ---
REPEAT CT HEAD DONE. AWAITING RESULT
[2023-02-25] MEDS ORDERED: ALTEPLASE 100 MG VIAL IV SCH ×2 (10:00)
--- NOTE | 2023-02-25 10:08 | NUR ---
BILATERAL LOWER EXTREMITY UZ VENOUS DOPPLER AT BEDSIDE.
[2023-02-25] MEDS ORDERED: SODIUM CHLORIDE IV SCH (10:10)
[2023-02-25] MEDS: CEFEPIME 1,000 MG in DEXTROSE 5% 50 ML IV SCH (10:11)
[2023-02-25 10:46] LABS: ALBUMIN 2.4 g/dL (3.4-5.0); ANION GAP 21.7 (8-16); CARBON DIOXIDE 17.9 mmol/L (21-32); CHLORIDE 101 mmol/L (98-107); CREATININE 3.8 mg/dL (0.6-1.3); GFR ARICAN-AMERICAN 21 mL/min (>90); GLUCOSE 157 mg/dL (74-106); POTASSIUM 5.6 mmol/L (3.5-5.1); TOTAL BILIRUBIN 10.4 mg/dL (0.0-1.0)
[2023-02-25 10:51] LABS: UREA NITROGEN, BLOOD 78 mg/dL (7-18)
[2023-02-25 11:07] LABS: SODIUM SERUM 135 mmol/L (136-145)
[2023-02-25] MEDS ORDERED: VANCOMYCIN 750 MG in DEXTROSE 5% 250 ML IV SCH (12:00)
[2023-02-25 12:22] LABS: HEMOGLOBIN 8.9 g/dL (12.0-18.0); MEAN CORPUSCULAR HEMOGLOBIN 30 pg (27-31); MEAN CORPUSCULAR HGB CONC 34 g/dL (33-37); MEAN CORPUSCULAR VOLUME 88.6 fL (80-94); PLATELET COUNT (AUTO) 54 K/uL (140-450); RED BLOOD CELL COUNT(AUTO) 2.94 MIL/uL (4.20-6.10); RED CELL DISTRIBUTION WIDTH 18.2 % (11.6-13.7); WHITE BLOOD COUNT (AUTO) 17.3 K/uL (4.8-10.8)
[2023-02-25 13:00] LABS: BASOPHILS % (MANUAL) 0 % (0-2); BLASTS, MANUAL % 0 % (0-0); EOSINOPHILS % (MANUAL) 1 % (0-4); LYMPHOCYTES % (MANUAL) 2 % (20-46); METAMYELOCYTES % 0 % (0-0); MONOCYTES % (MANUAL) 6 % (5-12); MYELOCYTES % 0 % (0-0); OTHER CELLS,MANUAL % 0 (0-0); PROMYELOCYTES % 0 % (0-0)
--- NOTE | 2023-02-25 13:47 | NUR ---
DR. BALDERAS CALLED BACK REGARDING NO URINE OUTPUT IN THE KEATING CATH PER md SPOKE TO REGARDING PT CONDITION NO NEW ORDER GIVEN FOR NURSING AT THIS TIME.
--- NOTE | 2023-02-25 13:57 | NUR ---
02/25/23 RD INITIAL ASSESSMENT COMPLETED PLEASE REFER TO NUTRITION ASSESSMENT UNDER CARE ACTIVITY FOR ESTIMATED NUTRITIONAL NEEDS. 1. CONTINUE NPO DIET TOLERATED. IF PATIENT REQUIRES A TUBE FEEDING RECOMMENDATION, THEN NEPRO @30ML/HR WITH FWF OF 275ML Q6H OR PER MD CAN BE GIVEN. THIS WILL PROVIDE 1,296 CALORIES AND 58 GRAMS OF PROTEIN. START AT 10 ML/HR AND INCREASE BY 10ML Q4H TOLERATED. 2. RD WILL CONTINUE TO FOLLOW UP ON PO INTAKE, SKIN INTERGRITY, GI ISSUES, WEIGHT, AND NUTRITION RELATED LAB VALUES. 3. RD TO FOLLOW-UP 2-3 DAYS, HIGH RISK MICHAEL JENNINGS RD
--- NOTE | 2023-02-25 13:58 | NUR ---
called dr. turk and made aware pt has no urine output awaiting call back
[2023-02-25 14:43] LABS: ANION GAP 18.5 (8-16); CREATININE 3.8 mg/dL (0.6-1.3); POTASSIUM 5.5 mmol/L (3.5-5.1)
--- NOTE | 2023-02-25 14:50 | NUR ---
DC PLANNING A 62YO MALE PATIENT WITH HX OF UNTREATED HEPATITIS C,LIVER MASS WITH MULTIPLE LIVER LESIONS ,MULTIPLE PULMONARY MODULES, CHRONIC ANEMIA,HTN, PORTAL HTN PRESENTING WITH AMS.PATIENT WAS ALSO HYPOXIC AND WAS PLACED ON BIPAP AND EVENTUALLY GOT INTUBATED FOR UNRESPONSIVENESS,CXR SHOWS BILATERAL INFILTRATES.WBC 17.5, HAD BLOOD AND PLATELET TRANSFUSIONS FOR HGB 7.6, PLATELET 145.PATIENT IS ON LEVOPHED,NA BICARB AND OCTREOTIDE DRIPS.ABDOMINAL US SHOWS ASCITES,LARGE MASS IN THE RIGHT LOBE AND GALLBLADDER STONES .CT ANGIOGRAM SHOWS LARGE ATRIAL CLOT AND BILATERAL PULM EMBOLUS.PATIENT NEEDS [facility] FOR MECHANICAL THROMBECTOMY AND TIPS PROCEDURE FOR ACUTE BUDD DANY SYNDROME WITH BLOODY ASCITES,ACUTE LIVER FAILURE , JAUNDICE AND HEPATIC COAGULOPATHY.COVID (-) CLINICALS FAXED TO [facility] AND [facility].AWAITING FOR ACCEPTANCE AND BED AVAILABILITY.CM TO FOLLOW. Addendum: 02/25/23 at 1550 by ALVIN JACKSON CM DC PLANNING -LATE ENTRY TRIED CALLING ASSIGNED CM DANE AND LEFT MESSAGES BUT NO RESPONSE.TALKED TO A REP AT AND WAS GIVEN ANOTHER CM, ILAN .MESSAGE LEFT WELL.NEED TRANSFER AUTH TO [facility]. Addendum: 02/25/23 at 1724 by Kimmie Randall RN DC PLANNING: ARRANGED TRANSPORT WITH [facility] PLACE IT WILL CALL NOTIFIED ICU NURSE. PLS CALL [facility] WHEN BED AVAILABLE. [phone] Addendum: 02/26/23 at 1039 by ALVIN JACKSON CM DC PLANNING KAVIN HUNTER TRYING TO GET AN ACCEPTING MD.UPDATED DRIPS PROVIDED.FAMILY STILL WANTS FULL CODE AND TRANSFER TO [facility].ON 2 PRESSORS(LEVOPHED AND VASOPRESSIN0 ,SODIUM BICARB ,PROTONIX AND OCTREOTIDE.VENTED ON AC 24,TV 450 PEEP 5,FIO2 40% .POMONA DECLINED .PATIENT NEEDS TO TRANSFER TO [facility] DECLINED. PATIENT IS TOO SICK AND SURGEON THINKS INTERVENTIONAL PROCEDURE WILL NOT CHANGE THE OUTCOME .CM TO FOLLOW.
[2023-02-25] MEDS: OCTREOTIDE ACETATE 1.25 MG in NACL 0.9% 250 ML IV SCH (15:37)
[2023-02-25 16:06] LABS: BASOPHILS # (AUTO) 0.1 K/uL (0.00-0.22); BASOPHILS % (AUTO) 0.4 % (0.0-2.0); EOSINOPHILS # (AUTO) 0.1 K/uL (0-0.4); EOSINOPHILS % (AUTO) 0.6 % (0.0-4.0); HEMATOCRIT 23.9 % (36-52); HEMOGLOBIN 8.2 g/dL (12.0-18.0); LYMPHOCYTES # (AUTO) 1.3 K/uL (2.0-11.5); LYMPHOCYTES % (AUTO) 7.1 % (20.5-51.1); MEAN CORPUSCULAR HEMOGLOBIN 30 pg (27-31); MEAN CORPUSCULAR HGB CONC 34 g/dL (33-37); MEAN CORPUSCULAR VOLUME 88.8 fL (80-94); MONOCYTES # (AUTO) 1.7 K/uL (0.8-1.0); MONOCYTES % (AUTO) 9.4 % (1.7-9.3); NEUTROPHILS # (AUTO) 14.7 K/uL (1.8-7.7); NEUTROPHILS % (AUTO) 82.5 % (42.2-75.2); PLATELET COUNT (AUTO) 54 K/uL (140-450); RED BLOOD CELL COUNT(AUTO) 2.69 MIL/uL (4.20-6.10); RED CELL DISTRIBUTION WIDTH 18.3 % (11.6-13.7); WHITE BLOOD COUNT (AUTO) 17.8 K/uL (4.8-10.8)
--- NOTE | 2023-02-25 16:20 | NUR ---
DR. STOVALL OUTBOUND SALES PROFESSIONAL CAME IN AND SEE PT AND GET UPDAT FOR PT CONDITION PT ARNALDO AND PT SISTER IS AT BEDSIDE MD AND HAVE DISCUSSED PLAN OF CARE AND DIEASES PROCESS FAMILY QUESTIONAS ALL ANSWERED VERBALIZED UNDERSTANDING. NO NEW ORDER FOR NURSING AT THIS TIME.
[2023-02-25 17:01] LABS: FIBRINOGEN 90 mg/dL (200-400)
--- NOTE | 2023-02-25 17:10 | NUR ---
DR. DAI CALLED AND GET UPDATE ON LATEST LABS RESULT CBC, PT/INR APTT AND FIBRINOGEN LEVEL. MADE AWARE NGT DRAINAGE DARK RED AND NO URINE OUTPUT. AWARE OF TPA IS DONE AND STARTED ON AGATROBAN DRIP ORDER TO DO CBC PT/INR APTT AND FIBRINOGEN LEVEL Q4H RECHECK LAB ORDER. ALL ORDERS IS PLACED Q4 EARLIER VERIFIED ORDER IS PLACED WILL ENNDORSED AT THRASHER FEEDER NURSE
--- NOTE | 2023-02-25 17:32 | NUR ---
received call from [facility], requested for latest V/S and latest drips
--- NOTE | 2023-02-25 18:20 | NUR ---
ALLY FUR JOINER CALL REGARDING PLAN FOR TRANSFER TO [facility] PT IS ACCEPETED TO [facility] AWAITING BED PLACEMENT, PER ALLY [facility] TRANSPORT IS ARRANGED BUT NURSING WILL CALL WHEN [facility] WILL CALL BACK AND CONFIRMED THE BED ASSIGNMENT FOR PT.
--- NOTE | 2023-02-25 18:47 | NUR ---
SON CAME IN AT BEDSIDE MADE AWARE PLAN TO TRANSFER TO HIGHER LEVEL OF CARE [facility] GET UPDATE FOR PT AWAITING BED ASSIGNMENT GAVE CELL NO OF HIS MOM ARNALDO TO CALL WHEN TRANSFER IS READY CELL NO IS [phone].
--- NOTE | 2023-02-25 19:28 | NUR ---
GAVE REPOSRT TO [employer]INTENANCEMETAL PICKLING EQUIPMENT OPERATOR FOR CONTINUITY OF CARE.
[2023-02-25 20:01] LABS: BASOPHILS % (AUTO) 0.2 % (0.0-2.0); EOSINOPHILS # (AUTO) 0.1 K/uL (0-0.4); EOSINOPHILS % (AUTO) 0.7 % (0.0-4.0); HEMATOCRIT 22.1 % (36-52); HEMOGLOBIN 7.5 g/dL (12.0-18.0); LYMPHOCYTES # (AUTO) 1.9 K/uL (2.0-11.5); LYMPHOCYTES % (AUTO) 10.4 % (20.5-51.1); MEAN CORPUSCULAR HEMOGLOBIN 31 pg (27-31); MEAN CORPUSCULAR HGB CONC 34 g/dL (33-37); MEAN CORPUSCULAR VOLUME 89.9 fL (80-94); MONOCYTES # (AUTO) 1.9 K/uL (0.8-1.0); MONOCYTES % (AUTO) 10.9 % (1.7-9.3); NEUTROPHILS # (AUTO) 13.9 K/uL (1.8-7.7); NEUTROPHILS % (AUTO) 77.8 % (42.2-75.2); PLATELET COUNT (AUTO) 57 K/uL (140-450); RED BLOOD CELL COUNT(AUTO) 2.46 MIL/uL (4.20-6.10); RED CELL DISTRIBUTION WIDTH 18.1 % (11.6-13.7); WHITE BLOOD COUNT (AUTO) 17.9 K/uL (4.8-10.8)
--- NOTE | 2023-02-25 21:33 | NUR ---
WHILE CONDUCTING ROUTINE CHECK IN ICU, CALLED BY RN TO CHECK PATIENT RAPID IMMEDIATE DESATURATION, NOTICED THE WAVEFORM ON THE ICU MONITOR WAS NOT GOOD, THE PT WAS IN NO DISTRESS, AND THERE WERE NO VENTILATOR ALARMS. REALIZED THE MONITOR ON THE PT FOR THE PULSE OX WAS NOT READING PROPERLY, SWITCHED PT TO STAND ALONE PULSE OX MONITOR. GOOD WAVEFORMS AND GOOD READINGS. RN AWARE, WILL CONTINUE TO MONITOR
[2023-02-25] MEDS ORDERED: PHENYLEPHRINE 10 MG/ML VIAL ONE (23:34)
[2023-02-25] MEDS ORDERED: ALBUMIN HUMAN 25% 100 ML IV ONE (23:59)
[2023-02-26] VITALS (46 sets, daily range): BP systolic 61–210; BP diastolic 25–128; PULSE 56–161; RESP 19–28; TEMP 96.2–98; O2SAT 88–98
[2023-02-26] MEDS ORDERED: DEXTROSE 50% 50 ML SYR IVP ONE (00:08)
[2023-02-26 00:23] LABS: BASOPHILS # (AUTO) 0.1 K/uL (0.00-0.22); BASOPHILS % (AUTO) 0.3 % (0.0-2.0); EOSINOPHILS # (AUTO) 0.2 K/uL (0-0.4); EOSINOPHILS % (AUTO) 0.9 % (0.0-4.0); LYMPHOCYTES # (AUTO) 2.6 K/uL (2.0-11.5); LYMPHOCYTES % (AUTO) 14.4 % (20.5-51.1); MEAN CORPUSCULAR HEMOGLOBIN 31 pg (27-31); MEAN CORPUSCULAR HGB CONC 33 g/dL (33-37); MEAN CORPUSCULAR VOLUME 92.5 fL (80-94); MONOCYTES % (AUTO) 10.9 % (1.7-9.3); NEUTROPHILS # (AUTO) 13.6 K/uL (1.8-7.7); NEUTROPHILS % (AUTO) 73.5 % (42.2-75.2); PLATELET COUNT (AUTO) 51 K/uL (140-450); RED BLOOD CELL COUNT(AUTO) 1.88 MIL/uL (4.20-6.10); RED CELL DISTRIBUTION WIDTH 19.2 % (11.6-13.7); WHITE BLOOD COUNT (AUTO) 18.4 K/uL (4.8-10.8)
[2023-02-26 00:38] LABS: HEMATOCRIT 17.4 % (36-52); HEMOGLOBIN 5.8 g/dL (12.0-18.0)
[2023-02-26 01:56] LABS: PROTHROMBIN TIME > 120.0 secs (10.8-13.4)
[2023-02-26 01:57] LABS: FIBRINOGEN > 475 mg/dL (200-400)
--- NOTE | 2023-02-26 02:05 | NUR ---
RECEIVED MULTIPLE CALLS FROM RN, PATIENT HAS VERY LOW PERFUSION AND ANY PULSE OX READING IS NOT CORRELATING WITH WAVEFORM AND HEART RATE. PT SATURATIONS WERE 99% ON 24% FIO2, WHEN WAVEFORM AND HR CORRELATED. RN EXPRESSED CONCERN AND ASKED ME TO PLACE THE PT ON 40% FIO2, I ATTEMPTED TO EXPLAIN THE FIO2 WOULDN'T EFFECT THE CORRELATION OR LOW PERFUSION. PLACED PT ON 40%, IF PERFUSION REMAINS LOW, WILL HAVE AN ABG ORDERED IF PERFUSION PROBLEM PERSIST.
[2023-02-26] MEDS: NOREPINEPHRINE 16 MG in DEXTROSE 5% 250 ML IV PRN (02:07)
--- NOTE | 2023-02-26 06:00 | NUR ---
PRBC # 3 transfusing for Hgb=5.8. Argatroban Drip DC @ 0045 for bleeding and PTT > [address] Krunal Osorio. pt[address] ST on the scope. Levophed, Neosynephrine & Vasopressin, Sandostatin & Protonix, Bicarb Driop infung. pt. Rt. Femoral TLC central Line dressing changed and pressure dressing applied for slight bleeding @ site. kept clean and dry. Repositioned. Family updated on pt. status. Will cont. to monitor.
[2023-02-26 06:08] LABS: HEPATITIS A ANTIBODY IGM Negative (Negative); HEPATITIS B CORE AB TOTAL Negative (Negative); HEPATITIS B SURFACE ANTIBODY Non Reactive (.); HEPATITIS B SURFACE ANTIGEN Negative (Negative)
[2023-02-26] MEDS: metroNIDAZOLE 500 MG/NS PREMIX 100 ML IV SCH ×3 (07:14→21:32)
[2023-02-26] MEDS: PANTOPRAZOLE 80 MG in NACL 0.9% 100 ML IVP SCH ×2 (07:38→16:05)
--- NOTE | 2023-02-26 08:12 | NUR ---
RECEIVED PT ON ACVC 450, F 24, +, 28%. VENT PLUGGED INTO RED OUTLET, WHEELS LOCKED, ALARMS ARE SET AND AUDIBLE, AMBUBAG AT BEDSIDE. PT SATURATION READING 80%-97%. AGONAL BREATHING NOTED. RALES HEARD ON AUSCULTATION. WILL CONTINUE TO MONITOR.
--- NOTE | 2023-02-26 08:42 | NUR ---
TRIED TO GET ABG ON PT, RADIAL AND BRACHIAL. NO SUCCESS. TITRATED FIO2 FROM 45 TO 60%. MULTIPLE PULSE OX NOT READING DUE TO LOW PERFUSION. WILL CONTINUE TO MONITOR.
[2023-02-26] MEDS ORDERED: DEXTROSE 10% 1,000 ML IV SCH (08:55)
[2023-02-26] MEDS ORDERED: DEXTROSE 50% 50 ML SYR IVP SCH ×4 (08:56→13:55)
--- NOTE | 2023-02-26 09:40 | NUR ---
at bedside at this time, aware of pt condition
--- NOTE | 2023-02-26 09:59 | NUR ---
lab at bedside at this time repeat cbc and bmp
[2023-02-26 10:10] LABS: BASOPHILS % (AUTO) 0.2 % (0.0-2.0); EOSINOPHILS # (AUTO) 0.2 K/uL (0-0.4); EOSINOPHILS % (AUTO) 0.9 % (0.0-4.0); HEMATOCRIT 20.5 % (36-52); LYMPHOCYTES % (AUTO) 15.5 % (20.5-51.1); MEAN CORPUSCULAR HEMOGLOBIN 31 pg (27-31); MEAN CORPUSCULAR HGB CONC 32 g/dL (33-37); MEAN CORPUSCULAR VOLUME 95.9 fL (80-94); MONOCYTES # (AUTO) 2.2 K/uL (0.8-1.0); MONOCYTES % (AUTO) 11.7 % (1.7-9.3); NEUTROPHILS # (AUTO) 13.8 K/uL (1.8-7.7); NEUTROPHILS % (AUTO) 71.7 % (42.2-75.2); PLATELET COUNT (AUTO) 37 K/uL (140-450); RED BLOOD CELL COUNT(AUTO) 2.14 MIL/uL (4.20-6.10); RED CELL DISTRIBUTION WIDTH 17.6 % (11.6-13.7); WHITE BLOOD COUNT (AUTO) 19.2 K/uL (4.8-10.8)
[2023-02-26] MEDS: CEFEPIME 1,000 MG in DEXTROSE 5% 50 ML IV SCH (10:13)
--- NOTE | 2023-02-26 10:17 | NUR ---
TITRATED FIO2 FROM 60% TO 100% DUE TO LOW SATURATION. WILL CONTINUE TO MONITOR.
[2023-02-26 10:18] LABS: HEMOGLOBIN 6.5 g/dL (12.0-18.0)
--- NOTE | 2023-02-26 10:25 | NUR ---
aware of known critical h/h per charge nurse
--- NOTE | 2023-02-26 10:26 | NUR ---
DR LARIOS AWARE OF CRITICAL LAB VALUE POTASSIUM 7.5
[2023-02-26 10:41] LABS: ALBUMIN 1.9 g/dL (3.4-5.0); ANION GAP 38.7 (8-16); CARBON DIOXIDE 12.6 mmol/L (21-32); CHLORIDE 89 mmol/L (98-107); GFR ARICAN-AMERICAN 17 mL/min (>90); GLUCOSE 137 mg/dL (74-106); MAGNESIUM 2.6 mg/dL (1.8-2.4); SODIUM SERUM 133 mmol/L (136-145); TOTAL BILIRUBIN 10.9 mg/dL (0.0-1.0)
[2023-02-26 10:59] LABS: CREATININE 4.6 mg/dL (0.6-1.3); POTASSIUM 7.3 mmol/L (3.5-5.1); UREA NITROGEN, BLOOD 76 mg/dL (7-18)
--- NOTE | 2023-02-26 11:50 | NUR ---
DR DAI HERE AT BEDSIDE WITH REGARDING PT CONDITION
--- NOTE | 2023-02-26 11:53 | NUR ---
DR MAYORGA CALLED REGARDING PT CRITICAL POTASSIUM
--- NOTE | 2023-02-26 11:53 | NUR ---
CORRECTION : DR SHERRIE KEYS AWARE OF CRITICAL LABS
[2023-02-26] MEDS ORDERED: SODIUM BICARBONATE 8.4% PFS 50 MEQ/50 ML SYR IVP SCH (13:30)
[2023-02-26] MEDS ORDERED: CALCIUM CHLORIDE 10% 100 MG/ML SYR IVP SCH (13:45)
[2023-02-26] MEDS ORDERED: INSULIN REGULAR, HUMAN 100 UNIT/ML VIAL IVP SCH (14:10)
[2023-02-26] MEDS: SODIUM BICARBONATE 8.4% 150 MEQ in DEXTROSE 5% 1,000 ML IV SCH (14:28)
--- NOTE | 2023-02-26 14:45 | NUR ---
PT. IS AT CRITICAL STATUS, FAMILY AT BEDSIDE.PT. WITH LOW KAREN SCALE AT HIGH RISK, CONTINUE TO FOLLOW PRESSURE INJURY PREVENTION INTERVENTIONS. -POSITIONING: TURN AND REPOSITION PATIENT Q 2H OR SOONER USE PILLOWS TO KEEP BONY PROMINENCES FROM DIRECT CONTACT WITH SURFACES USE REPOSITIONING WEDGES TO PROVIDE 30-DEGREE ANGLE FOR SIDE LYING POSITIONS OFFLOADING OR FOAM DRESSING TO ALL TUBING TO PREVENT MEDICAL DEVICES RELATED PRESSURE INJURY -RE-EVALUATING AND MANAGING INCONTINENCE MONITOR SKIN CONDITION DURING POSITION CHANGE DO NOT MASSAGE REDNESS, BONY PROMINENCES FREQUENT DIONI-CARE AND PROVIDE BARRIER CREAMS PRN IF SOILING MOISTURE CONTROL BY OFFER BED MABRY/URINAL /ABSORBENT PAD TO WICK AND HOLD MOISTURE KEEP SKIN DRY AND PROTECT FROM FRICTION -MANAGE FRICTION/SHEAR/MOBILITY KEEP HOB AT THE LOWEST LEVEL OF ELEVATION NO MORE THAN 30 DEGREE UNLESS OTHERWISE CONTRAINDICATED USE LIFT SHEET OR TRANSFER DEVICE TO MOVE PATIENT AND PREVENT LATERAL SHEER. PROTECT HEELS, ELBOWS BONY PROMINENCES WITH SKIN BERRIES OR FOAM DRESSING IF EXPOSED TO FRICTION OFFLOAD BILATERAL HEELS BY PLACING PILLOWS UNDER CALVES AT ALL TIMES, UNLESS OTHERWISE CONTRAINDICATED -PRESSURE REDISTRIBUTION SURFACE THERAPY NARCISA ISOFLEX MATTRESS -NUTRITION: PLEASE FOLLOW RD RECOMMENDATIONS AND OFFER NUTRITION SUPPLEMENTS IF ORDERED. PLEASE CONTACT WOUND CARE NURSE FOR ANY QUESTION AND CHANGE OF WOUND CONDITION.
[2023-02-26] MEDS: OCTREOTIDE ACETATE 1.25 MG in NACL 0.9% 250 ML IV SCH (15:52)
--- NOTE | 2023-02-26 18:48 | NUR ---
CALL LIGHT WITHIN REACH, FAMILY AT BEDSIDE
--- NOTE | 2023-02-26 19:03 | NUR ---
MEHRDADAR TO AMAURY(RAJ)
--- NOTE | 2023-02-26 19:05 | NUR ---
RECEIVED REPORT FROM [facility] [employer] RELATIONS WORKERBOOT TURNER PT ADMITTED FOR MULTIPLE ORGAN FAILURE ETT TO VENT ON FIO2 100% TV 450 RR 24 PEEP 5. V/S 96.3 HR 163, BP 80/39 ON SOD CUTTER. PT HAS RIGHT NARES NGT CONNECT TO LIS DRAINING DARK RED DRAINAGE PT HAS LARGE FIRM ABDOMEN. . PT HAS KEATING CATHETER SMALL AMOUNT OF URINE . PT HAS 1 IV PERIPHERAL RIGHT HAND AND LEFT AC AND LEFT GROIN CENTRAL. WITH IV LEVOPHED DRIP AT 22 MCG, VASOPRESSIN 0.03 UNITS/MIN, OCTREOTIDE 50 MCG/HR AND PROTONIX 8MG/HR AND SODIUM BICARB 150ML HR. WILL CONTINUE TO MONITOR PT. Addendum: 02/27/23 at 0001 by DARRIN BUSTILLO RN CORRECTION: LEVOPHED DRIP AT 30 MCG
--- NOTE | 2023-02-26 19:40 | NUR ---
PT IN ON VENTILATOR, PLUGGED INTO RED OUTLET, BVM PRESENT BEDSIDE. VENT ALARMS AUDIBLE AND WORKING. CALL LIGHT WITHIN REACH. PT ON 100% FIO2
[2023-02-26] MEDS ORDERED: PHENYLEPHRINE 10 MG/ML VIAL ONE (20:26)
[2023-02-26] MEDS: VASOPRESSIN 20 UNITS in NACL 0.9% 250 ML IV SCH (20:56)
[2023-02-26] MEDS: ALBUMIN HUMAN 25% 100 ML IV SCH ×2 (21:00)
--- NOTE | 2023-02-26 21:30 | NUR ---
PT LEFT FEMORAL CENTRAL LINE DRESSING CLEANED AND CHANGED.
[2023-02-26] MEDS: PHENYLEPHRINE 40 MG in NACL 0.9% 250 ML IV PRN ×3 (21:44)
--- NOTE | 2023-02-26 22:13 | NUR ---
PT FAMILY/RELATIVE IS AT THE BEDSIDE. PULSE RATE AND O2 SAT STILL NOT REGISTERING IN THE MONITOR.
[2023-02-27] VITALS: BP 164/57; RESP 28
--- NOTE | 2023-02-27 00:43 | NUR ---
PATIENT IS HAVING IDIOVENTRICULAR RHYTHM OBSERVED ON ZONE MAINTENANCE TECHNICIAN THEN TO ASYSTOLE; CHECKED AND AUSCULTATED THE PATIENT; NO CARDIAC ACTIVITY NOTED; PATIENT AND PRONOUNCED AT 0047. FAMILY WAS NOTIFIED IMMEDIATELY.
--- NOTE | 2023-02-27 00:47 | NUR ---
ASYSTOLE NOTED ON THE MONITOR, PER DR ORDER BY DR LARIOS, PT DNR, CONFIRMED BY CHARGE NURSE AND NURSE AMAURY. DNR ENDORSED BY MORNING SHIFT NURSE SHARON.
--- NOTE | 2023-02-27 01:03 | NUR ---
RECEIVED CALL FROM ICU TO STAFF TO REMOVE VENTILATOR FROM PT. WHEN I ARRIVED BEDSIDE, STAFF HAD SHUT OFF VENTILATOR AT POWER SWITCH. USING MY STETHOSCOPE I AUSCULTATED THE CHEST BILATERALLY, I HEARD NO BREATH SOUNDS AND NO HEART SOUNDS, THERE WAS NO HEART RATE NOR SATURATION ON THE MONITOR. I CONFIRMED WITH THE OTOLARYNGOLOGIST EDNA THAT I SHOULD REMOVE THE VENTILATOR, AT THAT TIME I REMOVED THE DISCONNECTED THE PATIENT FROM VENTILATOR CIRCUIT AT THE [facility]. I REMOVED THE VENTILATOR FROM BEDSIDE AFTER WIPING THE VENTILATOR WITH PURPLE WIPES.
--- NOTE | 2023-02-27 01:40 | NUR ---
PHONE CALL PLACED TO [facility] OFFICE, INFORMED THAT THE SHANK INSPECTOR WILL CALL BACK TO DISCUSS PATIENT.
--- NOTE | 2023-02-27 01:45 | NUR ---
PHONE CALL TO [facility] TO INFORM ABOUT PATIENT EXPIRATION , SPOKE WITH SAUL, REFERENCE NO. [id number]. PROVIDED SAUL WITH PATIENT INFORMATION, PER SAUL [facility] WILL NOT BE TAKING THIS PATIENT.
--- NOTE | 2023-02-27 03:45 | NUR ---
IV LINES REMOVED ON THE LEFT AC AND LEFT FEMORAL CENTRAL LINE NOTED WITH OOZING OF FRESH BLOOD. PRESSURED APPLIED AROUND 15 MINUTES AND PRESSURE DRESSINGS APPLIED.
--- NOTE | 2023-02-27 04:00 | NUR ---
[facility] MORTEM CARE RENDERED AND BROTHER REMAINED AT THE BEDSIDE PER WIVE'S REQUEST. CHARGE NURSE HELPED TO CLEAN THE BODY, REMOVED MEDICAL LINES AND TUBINGS. PT PLACED IN BODY BAG WITH IDENTIFYING TOE TAG ATTACHED, BAG WAS ZIPPED UP AND IDENTIFYING TAG WAS APPLIED TO THE ZIPPER. DOUBLE CHECKED THE BEDSIDE FOR PT BELONGINGS. ASKED THE TO SECURE THE PT'S PERSONAL BELONGINGS AND INFORMED US THAT IT IS ALREADY AT THEIR HOME. CHARGE NURSE CONTACTED THE MORTUARY PREFERRED BY FAMILY.
--- NOTE | 2023-02-27 04:30 | NUR ---
BODY TAKEN BY [facility].
== END 2023-02-27 00:47 | DRG 871 ==
LOC: MED 10:58 → MTU 13:16 → MIC 16:48
PROVIDERS: ADMIT Internal Medicine; ATTEND Internal Medicine
PROC: 06HY33Z Insertion of Infusion Device into Lower Vein, Percutaneous Approach (ICD-10-PCS; principal; 2023-02-24)
PROC: B44GZZZ Ultrasonography of Left Lower Extremity Arteries (ICD-10-PCS; 2023-02-24)
PROC: 0W9G3ZZ Drainage of Peritoneal Cavity, Percutaneous Approach (ICD-10-PCS; 2023-02-24)
PROC: 0BH17EZ Insertion of Endotracheal Airway into Trachea, Via Natural or Artificial Opening (ICD-10-PCS; 2023-02-24)
PROC: 5A1945Z Respiratory Ventilation, 24-96 Consecutive Hours (ICD-10-PCS; 2023-02-24)
PROC: 30233K1 Transfusion of Nonautologous Frozen Plasma into Peripheral Vein, Percutaneous Approach (ICD-10-PCS; 2023-02-25)
PROC: 30233N1 Transfusion of Nonautologous Red Blood Cells into Peripheral Vein, Percutaneous Approach (ICD-10-PCS; 2023-02-25)
DX: A41.9 Sepsis, unspecified organism (principal); G93.41 Metabolic encephalopathy; J96.01 Acute respiratory failure with hypoxia; N17.0 Acute kidney failure with tubular necrosis; I21.4 Non-ST elevation (NSTEMI) myocardial infarction; K85.90 Acute pancreatitis without necrosis or infection, unspecified; J69.0 Pneumonitis due to inhalation of food and vomit; I82.220 Acute embolism and thrombosis of inferior vena cava; I26.09 Other pulmonary embolism with acute cor pulmonale; I82.0 Budd-Chiari syndrome; R65.21 Severe sepsis with septic shock; E72.20 Disorder of urea cycle metabolism, unspecified; E87.1 Hypo-osmolality and hyponatremia; E87.20 Acidosis, unspecified; D68.59 Other primary thrombophilia; I10 Essential (primary) hypertension; B19.20 Unspecified viral hepatitis C without hepatic coma; I99.8 Other disorder of circulatory system; E87.5 Hyperkalemia; Z20.822 Contact with and (suspected) exposure to COVID-19; K74.60 Unspecified cirrhosis of liver; D69.6 Thrombocytopenia, unspecified; E16.2 Hypoglycemia, unspecified; R74.01 Elevation of levels of liver transaminase levels; D64.9 Anemia, unspecified; Z66 Do not resuscitate; Z88.0 Allergy status to penicillin; Z79.899 Other long term (current) drug therapy
CPT/HCPCS: 31500; 36415; 36430; 36556; 36600; 70450; 71045; 71275; 76700; 80048; 80053; 80202; 82140; 82553; 82803; 82948; 83605; 83690; 83735; 83880; 84484; 85025; 85384; 85610; 85730; 86704; 86706; 86708; 86709; 86803; 86886; 86900; 86901; 86920; 87040; 87070; 87075; 87081; 87205; 87340; 89220; 93970; 94002; 94003; 94640; 96365; 96368; 96375; 99291; 99292; C9113; J0610; J0692; J1644; J1815; J2001; J2250; J2270; J2354; J2370; J2543; J2997; J3370; J3490; J7030; J7060; J7613; P9016; P9017; P9046; Q0092; Q9967